=== PATIENT | female | born 1975 | race Caucasian/White ===

== ENCOUNTER → 2020-05-04 14:33 | Outpatient (BNVA) | payer MEDICAID, SELFPAY | PROVIDERS: Family Provider Internal Medicine Rheumatology; PCP Registered Nurse; Visit Provider Family Medicine | DX: R55 Syncope and collapse (principal); Q27.9 Congenital malformation of peripheral vascular system, unspecified; Z13.220 Encounter for screening for lipoid disorders; Z13.6 Encounter for screening for cardiovascular disorders | CPT/HCPCS: 85025 ==

== ENCOUNTER → 2020-06-18 11:44 | Outpatient (BNVA) | payer MEDICAID, SELFPAY | PROVIDERS: Family Provider Internal Medicine Rheumatology; PCP Registered Nurse; Visit Provider Family Medicine | DX: R41.3 Other amnesia (principal); Q27.9 Congenital malformation of peripheral vascular system, unspecified; R55 Syncope and collapse; Z13.220 Encounter for screening for lipoid disorders; Z13.6 Encounter for screening for cardiovascular disorders | CPT/HCPCS: 80053; 80061; 82607; 82746; 84443 ==

== ENCOUNTER → 2020-09-28 13:02 | Outpatient (BNVA) | payer MEDICAID, SELFPAY | PROVIDERS: Family Provider Internal Medicine Rheumatology; PCP Registered Nurse; Referring Provider Registered Nurse; Visit Provider Registered Nurse | DX: Z79.899 Other long term (current) drug therapy (principal) | CPT/HCPCS: 36415; 80061; 83036 ==

== ENCOUNTER → 2020-12-23 12:03 | Outpatient (BNVA) | payer MEDICAID, SELFPAY ==
[2020-09-30 12:56] VITALS: BP 112/75; BMI 28.4
== END ==
PROVIDERS: Family Provider Internal Medicine Rheumatology; PCP Registered Nurse; Visit Provider Registered Nurse
DX: Z03.89 Encounter for observation for other suspected diseases and conditions ruled out (principal)
CPT/HCPCS: 36415; 80053; 80178; 82306; 83540; 85025